=== PATIENT | male | born 1985 | race Caucasian/White ===

== ENCOUNTER 2025-07-05 12:34 | Outpatient (REF) | payer OTHER, SELFPAY ==
[2025-07-05 18:26] LABS: MANUAL DIFF FLAG NO
[2025-07-05 18:45] LABS: Hematocrit 41.3 % (42.0-52.0); Hemoglobin 14.2 g/dl (14.0-18.0); Imm Gran Abs Auto 0.01 X10*3/uL (0.00-0.03); Imm Gran Pct Auto 0.2 % (0.0-0.4); Lymphocytes Absolute Auto 2.1 X10*3/uL (1.2-4.9); Mean Corpuscular HGB Conc 34.4 g/dl (31.0-36.0); Mean Corpuscular Hemoglobin 30.5 pg (27.0-33.0); Mean Corpuscular Volume 88.6 fL (80.0-98.0); NRBC Abs Auto 0.000 X10*3/uL (0.0-0.012); NRBC Pct Auto 0.0 /100WBC (0.0-0.2); Platelet Count 333 X10*3/uL (160-400); Red Blood Count 4.66 X10*6/uL (4.60-5.80); White Blood Count 6.5 X10*3/uL (4.8-10.8)
[2025-07-05 18:46] LABS: Appearance Urine Clear; Glucose Urine UA Negative (Negative); PH 6.5 (5.0-9.0); Specific Gravity - Urine <= 1.005 (1.005-1.025)
[2025-07-05 19:31] LABS: Alanine Aminotransferase 34 U/L (0-40); Albumin Level 4.8 g/dL (3.5-5.0); Alkaline Phosphatase 93 U/L (39-117); Anion Gap 13 (12-20); Aspartate Amino Transferase 34 U/L (5-37); Blood Urea Nitrogen 12 mg/dL (9-16); Calcium 9.4 mg/dL (8.4-10.2); Carbon Dioxide 26 mmol/L (22-29); Chloride 105 mmol/L (96-108); Cholesterol 222 mg/dL (<200); Estimated Glomerular Filt Rate > 60; HDL Cholesterol 45 mg/dL (>40); Magnesium 2.2 mg/dL (1.6-2.6); Potassium 4.3 mmol/L (3.3-5.1); Sodium 140 mmol/L (135-145); Total Protein 7.7 g/dL (6.5-8.0); Triglycerides 94 mg/dL (<150)
[2025-07-05 19:54] LABS: Folate 10.3 ng/mL (> or = 4.0); Vitamin B12 485 pg/mL (200-900)
[2025-07-06 04:16] LABS: HBS Num1 37.88 mIU/mL (0-7.99); HBsAGNum1 0.53 S/CO (0.00-0.99); HIV Num 1 0.08 S/CO (0.00-0.99); Hepatitis B Surface Antigen Negative (Negative); ~HepC Num1 6.64 S/CO (0.00-0.79); ~Hepatitis B Surface Antibody REACTIVE (Nonreactive); ~Hepatitis C Antibody Reactive (Nonreactive)
[2025-07-06 05:19] LABS: Total Hemoglobin (HGBA1C) 3663.4160 umol/L
[2025-07-06 14:28] LABS: HCV Log PCR <1.18 NOT DETECTED Log IU/mL (NOT DETECTED); HepC Viral Load <15 NOT DETECTED IU/mL (NOT DETECTED)
[2025-07-08 18:38] LABS: VITAMIN D (1,25 OH) D3 39 pg/mL; Vit D (1,25-Dihydroxy) Total 39 pg/mL (18-72); Vitamin D (1,25 OH) D2 <8 pg/mL
== END 2025-07-05 12:35 | disposition home or self-care (01) ==
LOC: HO.HKASLDS 12:34
PROVIDERS: PCP Student in an Organized Health Care Education/Training Program; Visit Provider Student in an Organized Health Care Education/Training Program
DX: Z13.9 Encounter for screening, unspecified (principal); Q66.89 Other specified congenital deformities of feet; M25.512 Pain in left shoulder; F43.10 Post-traumatic stress disorder, unspecified; F32.A Depression, unspecified; F19.90 Other psychoactive substance use, unspecified, uncomplicated; F17.210 Nicotine dependence, cigarettes, uncomplicated; Z87.898 Personal history of other specified conditions; Z86.19 Personal history of other infectious and parasitic diseases; Z79.899 Other long term (current) drug therapy
CPT/HCPCS: 36415; 80053; 80061; 81003; 82607; 82652; 82746; 83036; 83735; 84443; 85025; 86706; 86803; 87340; 87389; 87522; 99202

== ENCOUNTER 2025-07-05 12:34 | Outpatient (AMB) | payer OTHER, SELFPAY ==
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
[2025-07-05 13:02] VITALS: BP 131/88; PULSE 75; RESP 16; TEMP 36.4; O2SAT 97; BMI 31.2
== END 2025-07-05 13:37 | disposition home or self-care (01) ==
LOC: HO.HMCFMS 12:35
PROVIDERS: PCP Student in an Organized Health Care Education/Training Program; Visit Provider Student in an Organized Health Care Education/Training Program
DX: Q66.89 Other specified congenital deformities of feet (principal); M25.512 Pain in left shoulder; F19.90 Other psychoactive substance use, unspecified, uncomplicated; F17.200 Nicotine dependence, unspecified, uncomplicated; Z87.898 Personal history of other specified conditions; Z86.19 Personal history of other infectious and parasitic diseases; F43.10 Post-traumatic stress disorder, unspecified; F32.A Depression, unspecified

== ENCOUNTER 2025-07-21 13:38 | Outpatient (AMB) | payer OTHER, SELFPAY ==
--- NOTE | 2025-07-21 13:40 | A.OFFPC_ITS ---
Vital Signs 07/21/25 13:43 Height 5 ft 8.5 in Weight 217 lb 6 oz BMI 32.6 BP 136/85 Blood Pressure Location Rt brachial Position Sitting Respiration 18 Pulse 83 Pulse Source Monitor Temp 98 F Temp Source Oral Pulse Oximetry (%) 98 Oxygen Delivery Method Room Air Intake Visit Reasons: 2 week follow up Intake Note: follow up Radiology Practitioner Assistant Required: No Accompanied by: Self / Same As Patient Allergies Anesthetics - Amide Type - Select A (ANESTHETICS - AMIDE TYPE) Allergy (Severe, Verified 07/21/25 13:43) MALIGNANT HYPERTENSION Medication List - Last Reconciled 07/21/25 by Mehran Vale MD diclofenac sodium 1% 4 grams topical QID sertraline 50 mg PO QAM Tobacco use date assessed: 07/05/25 Dental Screening Dental Screen Date: 07/05/25 HPI HPI Comments History of Present Illness Details History of Present Illness The patient is a 40-year-old male presenting for a review of recent laboratory results. Prediabetes: The patient's hemoglobin A1c is 5.8%, placing him in the prediabetic range of 5.7% to 6.4%. Hypercholesterolemia: The patient's lipid panel revealed a total cholesterol of 222 mg/dL, which is above the recommended level of less than 200 mg/dL, and an LDL cholesterol of 159 mg/dL, which is above the goal of less than 100 mg/dL. History of Hepatitis C: The patient has a history of Hepatitis C, which was [facility]. His recent lab work shows a positive Hepatitis C antibody test, which is expected after treatment. Weight gain: The patient reports a weight gain of 10 pounds over the past two weeks. Social History: - Employment: The patient works in [employer] and has recently returned to work, currently working three days a week. - Diet: The patient reports eating church , egg, and cheese for breakfast every morning but also states he tries to eat - Substance Use: He notes that his lab v alues were previously affected by his diet and alcohol consumption. - Weight Management: The patient reports a recent weight gain of 10 pounds in two weeks. Diagnostic Results: - CBC: White blood cells, red blood cell s, hemoglobin, and platelets are normal. - Comprehensive Metabolic Panel: Sodium, potassium, chloride, liver function, and kidney function are normal. - Hemoglobin A1c: 5.8%. - Lipid Panel: Total cholesterol 222 mg/ dL, LDL cholesterol 159 mg/dL, triglycerides 94 mg/dL, and HDL cholesterol 45 mg/dL. - Other labs: Calcium, magnesium, vitami n B12, vitamin D, folate, and thyroid function are normal. - Urinalysis: Normal. - Infectious Disease Screen: Hepatitis B negative, HIV negative, Hepatitis C antibody positive. Past Medical History - Hepatitis C: Previously treated [facility]. Health Maintenance - The patient was counseled on dietary c hanges to manage prediabetes and hypercholesterolemia, including reducing intake of carbohydrates, cheese, and fried foods. - A follow-up visit is scheduled in 3 mo [facility] to re-evaluate lab results. - Screening for Hepatitis B, Hepatitis C , and HIV was completed. [facility] Medical History (Updated 07/21/25 @ 13:55 by Mehran Vale MD) History of hepatitis C Hypercholesterolemia Prediabetes Club foot of both lower extremities Family History (Updated 07/05/25 @ 13:06 by Panchito Ramirez MA) Father Lung cancer Mother No problems noted. Social History Housing: Condominium Patient Tobacco Use Status: Current everyday Tobacco user Cigarette Packs Per Day: 0.5 service: No Current occupational status: employed Cognitive needs: No Hearing needs: No Vision needs: No Questionnaire Thrive Questionnaire Date Thrive assessed: 07/05/25 I am a: Patient What is your living situation today?: I have a steady place to live Within the past 12 months, did the food you bought not last and you didn't have the money to get more?: Never true Within the past 12 months, did you worry whether your food would run out before you got money to buy more?: Never true Do you have trouble paying for medicines?: No Do you have trouble getting transportation to medical appointments?: No Do you have trouble paying your heating and electricity bill?: No Do you have trouble taking care of your child, family member or friend?: No Do you have trouble with day-to-day activities such as bathing, preparing meals, shopping, managing finances, etc.?: No Are you currently unemployed and looking for a job?: No Are you interested in more education?: No Please select the resources that you would like help with: None Currently or been in a relationship where the following occur: I choose not to answer THRIVE Score: 0 AUDIT C Alcohol Use Questionnaire (AUDIT-C) 2. How many drinks containing alcohol do you have on a typical day when you are drinking?: 10 or more 3. How often do you have six or more drinks on one occasion?: Never Total Score: 4 ARON-7 AMB Questionnaire ARON-7 Date ARON - 7 assessed: 07/05/25 Source: Developed by Drs. Hugo Mojica, Hyun Barth, Alen Gee and colleagues, with an educational wily from [employer]. Review of Systems Narrative Review of Systems - Constitutional: Reports a weight gain of 10 pounds in 2 weeks. 10-point ROS reviewed and negative except as noted in HPI Physical exam (Primary Care) Vital Signs: Last Vital Signs Temp 98 F 07/21/25 13:43 Pulse 83 07/21/25 13:43 Resp 18 07/21/25 13:43 BP 136/85 07/21/25 13:43 Pulse Ox 98 07/21/25 13:43 Oxygen Delivery Method Room Air 07/21/25 13:43 BMI result Body Mass Index 32.6 Tobacco/Smoking Status: Tobacco use Status Tobacco use date assessed 07/05/25 07/21/25 13:40 Patient Tobacco Use Status Current everyday Tobacco 07/21/25 13:40 Thrive Assessment: Date of Thrive Assessment Date Thrive assessed 07/05/25 07/21/25 13:40 Currently or been in a relationship where the following occur: I choose not to answer Narrative Physical Exam General: Well-appearing, in no acute distress. Vital signs: Within normal limits. HEENT: Normocephalic, atraumatic. PERRLA, EOMI. Conjunctiva clear, sclera anicteric. Oropharynx clear, mucous membranes moist. TMs intact bilaterally. Neck: Supple, no lymphadenopathy, no thyromegaly, no JVD or carotid bruits. Cardiovascular: RRR, normal S1/S2, no murmurs, rubs, or gallops. Peripheral pulses 2+ and symmetric. No edema. Respiratory: Lungs clear to auscultation bilaterally, no wheezes, rales, or rhonchi. Normal effort. Abdomen: Soft, non-tender, non-distended. Normoactive bowel sounds. No hepatosplenomegaly, no masses. MSK: Full range of motion, no joint swelling or deformity. Normal gait. Skin: Warm, dry, intact. No rashes, lesions, or pallor. Neuro: Alert and oriented x3. Cranial nerves II-XII intact. Strength 5/5 throughout. Sensation intact. Reflexes 2+ symmetric. Normal coordination and gait. Psych: Appropriate mood and affect. Normal judgment and insight. Coding Level of Care Code Est Pt Level 3 (62623) Diagnoses Prediabetes R73.03 Hypercholesterolemia E78.00 History of hepatitis C Z86.19 Assessment & Plan Assessment & Plan (1) Prediabetes: Code(s): R73.03 - Prediabetes Category: Medical (2) Hypercholesterolemia: Code(s): E78.00 - Pure hypercholesterolemia, unspecified Category: Medical (3) History of hepatitis C: Code(s): Z86.19 - Personal history of other infectious and parasitic diseases Category: Medical Plan Consent Patient was informed and verbally consented to the use of an ambient scribe for clinic note documentation during this visit. Plan 1. Prediabetes - Based on an HbA1c of 5.8%, the patient is diagnosed with prediabetes. - Advised dietary modification focusing on decreased carbohydrate intake, such as bread, pasta, and rice. - Plan to recheck labs in three months to monitor response. 2. Hypercholesterolemia - The patient has elevated total cholesterol at 222 mg/dL and LDL cholesterol at 159 mg/dL. - Dietary modification was recommended, including reducing consumption of cheese and fried foods. - Plan to recheck the lipid panel in three months. 3. History Of Hepatitis C - The patient's positive Hepatitis C antibody is an expected finding given his history of successful treatment. - No further viral load testing is necessary at this time. - The office will request medical records from [facility] to obtain documentation of his treatment. Discussion Notes I reviewed the patient's lab results with him, noting that his blood counts, kidney function, and liver function were all normal. We discussed his hemoglobin A1c of 5.8%, explaining that this falls into the prediabetic range and can be managed with dietary changes, specifically by reducing carbohydrate intake. I also explained that his total cholesterol and LDL cholesterol were elevated. We discussed how dietary adjustments, such as reducing cheese and fried foods, can help lower these levels. We addressed his positive Hepatitis C antibody test, clarifying that this is an expected finding due to his prior successful treatment. I informed him that we would request his treatment records from the [facility] for our files. The patient agreed to a follow-up appointment in three months to re- evaluate his labs. Patient Instructions - To help lower your blood sugar, reduce your intake of carbohydrates like bread, pasta, and rice. - To lower your cholesterol, cut back on foods like cheese and fried items, such as fried eggs and church, egg, and cheese sandwiches. - Please let Shakira at the front tender know that we need to request your Hepatitis C treatment records from the [facility]. - Schedule a follow-up visit in three months to check your lab results again. Medical Decision Making The patient is a 40-year-old male who presented for a review of laboratory results. The kenney findings from this review are new-onset prediabetes, with an HbA1c of 5.8%, and hypercholesterolemia, evidenced by a total a cholesterol of 222 mg/dL and LDL of 159 mg/dL. Given that these values are only mildly elevated, the initial management approach will be conservative, focusing on therapeutic lifestyle changes. Pharmacotherapy is not indicated at this time. The patient's history of treated Hepatitis C was confirmed with a positive antibody test, an expected result that does not require further virologic w orkup. Obtaining prior treatment records is necessary for complete documentation. A close follow-up interval of three months was chosen to monitor the patient's response to dietary modifications and to enhance patient engagement, rather than waiting for a full year. Total time spent caring for the patient today was 20 minutes. This includes time spent before the visit reviewing the chart, time spent documenting, and time spent reviewing laboratory results, diagnostic imaging, medications, performing a medically necessary evaluation, counseling on diagnoses, care coordination
[2025-07-21 13:43] VITALS: BP 136/85; PULSE 83; RESP 18; TEMP 36.6; O2SAT 98; BMI 32.6
== END 2025-07-21 13:57 | disposition home or self-care (01) ==
LOC: HO.HMCFMS 13:39
PROVIDERS: PCP Student in an Organized Health Care Education/Training Program; Visit Provider Student in an Organized Health Care Education/Training Program
DX: R73.03 Prediabetes (principal); E78.00 Pure hypercholesterolemia, unspecified; Z86.19 Personal history of other infectious and parasitic diseases

== ENCOUNTER → 2025-07-21 13:38 | Outpatient (BNVA) | payer OTHER, SELFPAY | PROVIDERS: PCP Family Medicine; Visit Provider Student in an Organized Health Care Education/Training Program | DX: Z71.2 Person consulting for explanation of examination or test findings (principal); R73.03 Prediabetes; E78.00 Pure hypercholesterolemia, unspecified; Z86.19 Personal history of other infectious and parasitic diseases | CPT/HCPCS: 99212 ==